=== PATIENT | male | born 1985 | race Caucasian/White ===

== ENCOUNTER 2018-11-02 14:21 | Inpatient (IN) | payer OTHER ==
--- NOTE | 2018-11-02 21:09 | HP ---
COWS - Scale Resting Pulse: 0= CA 80 or Below Sweatin=Flushed/Facial Moisture Restless Observation: 3= Extraneous Movement Pupil Size: 1= Pupils >than Normal Bone or Joint Aches: 4=Acute Joint/Muscle Pain Runny Nose/ Eye Tearin= Runny Nose/Eyes GI Upset > 30mins: 1= Stomach Cramp Tremor Observation: 4= Gross Tremor/Twitching Yawning Observation: 1= 1-2x During Session Anxiety or Irritability: 2=Irritable/Anxious Goose Flesh Skin: 0=Smooth Skin COWS Score: 20 CIWA Score - Admission Criteria [facility] Guidelines: Admission for Medically Managed Detox: Requires at least one of the followin. CIWA greater than 12 2. Seizures within the past 24 hours 3. Delirium tremens within the past 24 hours 4. Hallucinations within the past 24 hours 5. Acute intervention needed for co occurring medical disorder 6. Acute intervention needed for co occurring psychiatric disorder 7. Severe withdrawal that cannot be handled at a lower level of care (continued vomiting, continued diarrhea, abnormal vital signs) requiring intravenous medication and/or fluids 8. Admission ROS [facility] Chief Complaint: Heroin withdrawal symptoms Allergies/Adverse Reactions: Allergies Allergy/AdvReac Type Severity Reaction Status Date / Time bacitracin Allergy Rash Verified 11/02/18 19:25 History of Present Illness: 33 years old male with 5 years of heroin dependence is seeking admission to detox. Patient reports that his last detox was in November 2014 and reports insignificant period of sobriety. He reports medical history of psoriasis and denies suicide attempt/suicidal ideation at this time. Exam Limitations: No Limitations - Ebola screening Have you traveled outside of the country in the last 21 days: No (N) Have you had contact with anyone from an Ebola affected area: No Do you have a fever: No - Review of Systems Constitutional: Chills, Loss of Appetite, Malaise, Changes in sleep, Weakness EENT: reports: Sinus Pressure Respiratory: reports: No Symptoms reported Cardiac: reports: No Symptoms Reported GI: reports: Poor Appetite, Poor Fluid Intake, Abdominal cramping : reports: No Symptoms Reported Musculoskeletal: reports: Back Pain, Joint Pain, Neck Pain, Other (Generalized body aches) Integumentary: reports: Dryness, Flushing Neuro: reports: Tremors Endocrine: reports: No Symptoms Reported Hematology: reports: No Symptoms Reported Psychiatric: reports: Mood/Affect Appropiate, Orientated x3, Anxious Other Systems: Reviewed and Negative Patient History - Patient Medical History Hx Anemia: No Hx Asthma: No Hx Chronic Obstructive Pulmonary Disease (COPD): No Hx Cancer: No Hx Cardiac Disorders: No Hx Congestive Heart Failure: No Hx Hypertension: No Hx Hypercholesterolemia: No Hx Pacemaker: No HX Cerebrovascular Accident: No Hx Seizures: No Hx Dementia: No Hx Diabetes: No Hx Gastrointestinal Disorders: No Hx Liver Disease: No Hx Genitourinary Disorders: No Hx Sexually Transmitted Disorders: No Hx Renal Disease (ESRD): No Hx Thyroid Disease: No Hx Human Immunodeficiency Virus (HIV): No Hx Hepatitis C: No Hx Depression: No Hx Suicide Attempt: No Hx Bipolar Disorder: No Hx Schizophrenia: No Other Medical History: PSORIASIS - COSTENYS INJECTION - Patient Surgical History Past Surgical History: No - PPD History Previous Implant?: Yes Documented Results: Positive w/proof Implanted On Prior [facility] Admission?: Yes Date: 12/29/14 PPD to be Administered?: Yes - Reproductive History Patient is a Female of Child Bearing Age (11 -55 yrs old): No (MALE) - Smoking Cessation Smoking history: Current every day smoker Have you smoked in the past 12 months: Yes Aproximately how many cigarettes per day: 10 Cigars Per Day: 0 Hx Chewing Tobacco Use: No Initiated information on smoking cessation: Yes 'Breaking Loose' booklet given: 11/02/18 - Substance & Tx. History Hx Alcohol Use: No (OCASSIONALLY. LAST USE 3 DAYS AGO) Hx Substance Use: Yes Substance Use Type: Cocaine, Heroin, Opiates Hx [facility] - Substances abused Heroin Substance route: Injection Frequency: Daily Amount used: 2 to 3 bags Age of first use: 26 Date of last use: 11/01/18 Cocaine Substance route: Inhalation Frequency: 3-6 times per week Amount used: 20 dollars Age of first use: 24 Date of last use: 11/01/18 Crack Substance route: Injection Frequency: Daily Amount used: 10 dollars Age of first use: 32 Date of last use: 11/01/18 Alcohol Substance route: Oral Frequency: 1-2 times per week Amount used: 1 to 2 beers. Age of first use: 16 Date of last use: 10/28/18 Family Disease History - Family Disease History Family History: Denies Admission Physical Exam [facility] - Vital Signs Vital Signs: Vital Signs - 24 hr 11/02/18 19:24 Temperature 97.5 F L Pulse Rate 76 Respiratory 20 Rate Blood Pressure 136/83 Cleared for Admission [facility] - Detox or Rehab [facility] Level of Care: Medically Managed Detox Regimen/Protocol: Methadone Claeared for Rehab Admission: No Breathalyzer - Breathalyzer Breathalyzer: 0 Urine Drug Screen - Test Device Lot number: [id number] Expiration date: 07/27/20 - Control Is test valid?: Yes - Results Drug screen NEGATIVE: No Urine drug screen results: SYLVAIN-Cocaine, MOP-Opiates, OXY-Oxycodone Inpatient Rehab Admission - Rehab Decision to Admit Inpatient rehab admission?: No
[2018-11-02] MEDS ORDERED: MAGNESIUM HYDROX 2400MG/30ML ORAL SUSPENSION 30 ML CUP PO PRN (21:19)
[2018-11-02] MEDS ORDERED: MAG HYDROX/AL HYDROX/SIMETH 30 ML UNIT-DOSE CUP PO PRN (21:19)
[2018-11-02] MEDS ORDERED: METHADONE HCL 10 MG TABLET (FOR DETOX USE ONLY) PO ONE (21:19)
[2018-11-02] MEDS ORDERED: cloNIDine HCL 0.1 MG TABLET PO PRN (21:19)
[2018-11-02] MEDS ORDERED: METHOCARBAMOL 500 MG TABLET PO PRN (21:19)
[2018-11-02] MEDS ORDERED: MAGNESIUM CITRATE 300 ML BOTTLE PO PRN (21:19)
[2018-11-02] MEDS ORDERED: ACETAMINOPHEN 325 MG TABLET (FP) PO PRN ×2 (21:19)
[2018-11-02] MEDS ORDERED: BISMUTH SUBSALICYLATE 524 MG/30 ML UD PO PRN (21:19)
[2018-11-02] MEDS ORDERED: MELATONIN 5 MG TABLETS PO PRN (21:19)
[2018-11-02] MEDS ORDERED: MENTHOL/PHENOL 1 EACH UD MM PRN (21:19)
[2018-11-02] MEDS ORDERED: IBUPROFEN 400 MG TABLET (FP) PO PRN (21:19)
[2018-11-02] MEDS: THIAMINE HCL 100 MG TABLET (FP) PO SCH (22:20)
[2018-11-03] MEDS ORDERED: METHADONE HCL 10 MG TABLET (FOR DETOX USE ONLY) ONE (09:48)
[2018-11-03] MEDS ORDERED: METHADONE HCL 5 MG TABLET (FOR DETOX USE ONLY) ONE (09:48)
[2018-11-03] MEDS ORDERED: METHADONE (DETOX) 20 MG, METHADONE (DETOX) 5 MG PO ONE (10:00)
[2018-11-03] MEDS: NICOTINE 14 MG/24 HOURS TOPICAL PATCH TD SCH (10:12)
[2018-11-03] MEDS: NICOTINE POLACRILEX 2 MG GUM BUC PRN (10:12)
[2018-11-03] MEDS: PRENATAL VITAMINS W/ FOLIC ACID TABLET (FP) PO SCH (10:14)
[2018-11-03 10:18] LABS: HEMATOCRIT 39.5 % (35.4-49); HEMOGLOBIN 13.5 GM/dL (11.7-16.9); MCH 32.7 pg (25.7-33.7); PLATELET COUNT 267 K/MM3 (134-434); RBC 4.12 M/mm3 (4.00-5.60); RDW 13.2 % (11.9-15.9); WHITE BLOOD COUNT 6.3 K/mm3 (4.0-10.0)
[2018-11-03 10:37] LABS: ALBUMIN 3.5 g/dl (3.4-5.0); BILIRUBIN,TOTAL 0.3 mg/dL (0.2-1); BLOOD UREA NITROGEN 12.6 mg/dL (7-18); CALCIUM 9.4 mg/dL (8.5-10.1); CREATININE 0.9 mg/dL (0.55-1.3); POTASSIUM 3.8 mmol/L (3.5-5.1); TOT PROT 7.2 g/dl (6.4-8.2)
[2018-11-03] MEDS: hydrOXYzine PAMOATE 25 MG CAPSULE (FP) PO PRN (12:28)
--- NOTE | 2018-11-03 15:28 | PN ---
BHS COWS - Scale Resting Pulse: 0= [place] 80 or Below Sweatin= Chills/Flushing Restless Observation: 1= Difficult to Sit Still Pupil Size: 0= Normal to Room Light Bone or Joint Aches: 2= Severe Diffuse Aches Runny Nose/ Eye Tearin= Nasal Congestion GI Upset > 30mins: 1= Stomach Cramp Tremor Observation of Outstretched Hands: 2= Slight Tremor Visible Yawning Observation: 1= 1-2x During Session Anxiety or Irritability: 2=Irritable/Anxious Goose Flesh Skin: 3=Piloerection COWS Score: 14 S Progress Note (SOAP) Subjective: Tremors, Anxious, Body Aches, Nasal Congestion. Objective: PATIENT A & O X 3, OBSERVED AMBULATING ON DETOX UNIT UNASSISTED. IN NO ACUTE DISTRESS. 11/03/18 15:26 Vital Signs Temperature 96.9 F L 11/03/18 13:36 Pulse Rate 80 11/03/18 13:36 Respiratory Rate 16 11/03/18 13:36 Blood Pressure 121/71 11/03/18 13:36 O2 Sat by Pulse Oximetry (%) Laboratory Tests 11/03/18 11/03/18 11/03/18 08:00 08:00 08:00 WBC 6.3 RBC 4.12 Hgb 13.5 Hct 39.5 MCV 96.0 MCH 32.7 MCHC 34.0 RDW 13.2 Plt Count 267 MPV 7.0 L Sodium 147 H Potassium 3.8 Chloride 110 H Carbon Dioxide 31 Anion Gap 6 L BUN 12.6 Creatinine 0.9 Est GFR (CKD-EPI)AfAm 131.44 Est GFR (CKD-EPI)NonAf 113.41 Random Glucose 90 Calcium 9.4 Total Bilirubin 0.3 AST 12 L ALT 25 Alkaline Phosphatase 67 Total Protein 7.2 Albumin 3.5 RPR Titer Nonreactive LABS NOTED. RESULTS OF DETOX ADMISSION QFT /TB TEST PENDING. 11/03/18 15:27 Assessment: 11/03/18 15:27 WITHDRAWAL SYMPTOMS. Plan: CONTINUE DETOX.
[2018-11-03] MEDS: THIAMINE HCL 100 MG TABLET (FP) PO SCH (22:45)
[2018-11-04] MEDS ORDERED: METHADONE HCL 10 MG TABLET (FOR DETOX USE ONLY) PO ONE (10:00)
[2018-11-04] MEDS: PRENATAL VITAMINS W/ FOLIC ACID TABLET (FP) PO SCH (10:23)
[2018-11-04] MEDS: hydrOXYzine PAMOATE 25 MG CAPSULE (FP) PO PRN (10:25)
[2018-11-04] MEDS: NICOTINE POLACRILEX 2 MG GUM BUC PRN ×3 (10:26→19:12)
[2018-11-04] MEDS: NICOTINE 14 MG/24 HOURS TOPICAL PATCH TD SCH (12:11)
--- NOTE | 2018-11-04 15:02 | PN ---
BHS COWS - Scale Resting Pulse: 0= CA 80 or Below Sweatin= Chills/Flushing Restless Observation: 0= Sits Still Pupil Size: 0= Normal to Room Light Bone or Joint Aches: 1= Mild Discomfort Runny Nose/ Eye Tearin= Nasal Congestion GI Upset > 30mins: 2= Nausea/Diarrhea Tremor Observation of Outstretched Hands: 1= Tremor [place], Not Seen Yawning Observation: 0= None Anxiety or Irritability: 2=Irritable/Anxious Goose Flesh Skin: 3=Piloerection COWS Score: 11 S Progress Note (SOAP) Subjective: 33 years old male 1st patient [facility], [place], operated by [facility] admission since 2014 was admitted on 11/02/18 for opiate withdrawal sx management doing well with methadone detox regimen mild body ache sleep better at night Objective: 11/04/18 15:04 Vital Signs Temperature 97.2 F L 11/04/18 09:59 Pulse Rate 67 11/04/18 09:59 Respiratory Rate 18 11/04/18 09:59 Blood Pressure 105/54 L 11/04/18 09:59 O2 Sat by Pulse Oximetry (%) Laboratory Last Values WBC 6.3 K/mm3 (4.0-10.0) 11/03/18 08:00 RBC 4.12 M/mm3 (4.00-5.60) 11/03/18 08:00 Hgb 13.5 GM/dL (11.7-16.9) 11/03/18 08:00 Hct 39.5 % (35.4-49) 11/03/18 08:00 MCV 96.0 fl (80-96) 11/03/18 08:00 MCH 32.7 pg (25.7-33.7) 11/03/18 08:00 MCHC 34.0 g/dl (32.0-35.9) 11/03/18 08:00 RDW 13.2 % (11.9-15.9) 11/03/18 08:00 Plt Count 267 K/MM3 (134-434) 11/03/18 08:00 MPV 7.0 fl (7.5-11.1) L 11/03/18 08:00 Sodium 147 mmol/L (136-145) H 11/03/18 08:00 Potassium 3.8 mmol/L (3.5-5.1) 11/03/18 08:00 Chloride 110 mmol/L (98-107) H 11/03/18 08:00 Carbon Dioxide 31 mmol/L (21-32) 11/03/18 08:00 Anion Gap 6 MMOL/L (8-16) L 11/03/18 08:00 BUN 12.6 mg/dL (7-18) 11/03/18 08:00 Creatinine 0.9 mg/dL (0.55-1.3) 11/03/18 08:00 Est GFR (CKD-EPI)AfAm 131.44 11/03/18 08:00 Est GFR (CKD-EPI)NonAf 113.41 11/03/18 08:00 Random Glucose 90 mg/dL (74-106) 11/03/18 08:00 Calcium 9.4 mg/dL (8.5-10.1) 11/03/18 08:00 Total Bilirubin 0.3 mg/dL (0.2-1) 11/03/18 08:00 AST 12 U/L (15-37) L 11/03/18 08:00 ALT 25 U/L (13-61) 11/03/18 08:00 Alkaline Phosphatase 67 U/L (45-117) 11/03/18 08:00 Total Protein 7.2 g/dl (6.4-8.2) 11/03/18 08:00 Albumin 3.5 g/dl (3.4-5.0) 11/03/18 08:00 RPR Titer Nonreactive (NONREACTIVE) 11/03/18 08:00 lab noted Assessment: 11/04/18 15:04 opiate withdrawal sx Plan: continue methadone detox
[2018-11-04] MEDS: THIAMINE HCL 100 MG TABLET (FP) PO SCH (23:35)
[2018-11-05] MEDS ORDERED: METHADONE (DETOX) 10 MG, METHADONE (DETOX) 5 MG PO ONE (10:00)
[2018-11-05] MEDS: PRENATAL VITAMINS W/ FOLIC ACID TABLET (FP) PO SCH (10:20)
[2018-11-05] MEDS: NICOTINE 14 MG/24 HOURS TOPICAL PATCH TD SCH (10:20)
[2018-11-05] MEDS ORDERED: METHADONE HCL 5 MG TABLET (FOR DETOX USE ONLY) ONE (10:20)
[2018-11-05] MEDS ORDERED: METHADONE HCL 10 MG TABLET (FOR DETOX USE ONLY) ONE (10:20)
[2018-11-05] MEDS: NICOTINE POLACRILEX 2 MG GUM BUC PRN ×4 (10:20→20:24)
[2018-11-05] MEDS: hydrOXYzine PAMOATE 25 MG CAPSULE (FP) PO PRN ×2 (10:39→18:01)
--- NOTE | 2018-11-05 11:07 | PN ---
BHS COWS - Scale Resting Pulse: 0= [place] 80 or Below Sweatin= Chills/Flushing Restless Observation: 0= Sits Still Pupil Size: 0= Normal to Room Light Bone or Joint Aches: 1= Mild Discomfort Runny Nose/ Eye Tearin= Nasal Congestion GI Upset > 30mins: 1= Stomach Cramp Tremor Observation of Outstretched Hands: 1= Tremor [place], Not Seen Yawning Observation: 1= 1-2x During Session Anxiety or Irritability: 2=Irritable/Anxious Goose Flesh Skin: 0=Smooth Skin COWS Score: 8 BHS Progress Note (SOAP) Subjective: doing well with methadone detox regimen sleep better at night mild body ache tolerate food and fluid well discuss medication assisted treatment program as aftercare in the community Objective: 11/05/18 11:15 Vital Signs Temperature 98.1 F 11/05/18 09:36 Pulse Rate 75 11/05/18 09:36 Respiratory Rate 18 11/05/18 09:36 Blood Pressure 122/73 11/05/18 09:36 O2 Sat by Pulse Oximetry (%) Laboratory Last Values WBC 6.3 K/mm3 (4.0-10.0) 11/03/18 08:00 RBC 4.12 M/mm3 (4.00-5.60) 11/03/18 08:00 Hgb 13.5 GM/dL (11.7-16.9) 11/03/18 08:00 Hct 39.5 % (35.4-49) 11/03/18 08:00 MCV 96.0 fl (80-96) 11/03/18 08:00 MCH 32.7 pg (25.7-33.7) 11/03/18 08:00 MCHC 34.0 g/dl (32.0-35.9) 11/03/18 08:00 RDW 13.2 % (11.9-15.9) 11/03/18 08:00 Plt Count 267 K/MM3 (134-434) 11/03/18 08:00 MPV 7.0 fl (7.5-11.1) L 11/03/18 08:00 Sodium 147 mmol/L (136-145) H 11/03/18 08:00 Potassium 3.8 mmol/L (3.5-5.1) 11/03/18 08:00 Chloride 110 mmol/L (98-107) H 11/03/18 08:00 Carbon Dioxide 31 mmol/L (21-32) 11/03/18 08:00 Anion Gap 6 MMOL/L (8-16) L 11/03/18 08:00 BUN 12.6 mg/dL (7-18) 11/03/18 08:00 Creatinine 0.9 mg/dL (0.55-1.3) 11/03/18 08:00 Est GFR (CKD-EPI)AfAm 131.44 11/03/18 08:00 Est GFR (CKD-EPI)NonAf 113.41 11/03/18 08:00 Random Glucose 90 mg/dL (74-106) 11/03/18 08:00 Calcium 9.4 mg/dL (8.5-10.1) 11/03/18 08:00 Total Bilirubin 0.3 mg/dL (0.2-1) 11/03/18 08:00 AST 12 U/L (15-37) L 11/03/18 08:00 ALT 25 U/L (13-61) 11/03/18 08:00 Alkaline Phosphatase 67 U/L (45-117) 11/03/18 08:00 Total Protein 7.2 g/dl (6.4-8.2) 11/03/18 08:00 Albumin 3.5 g/dl (3.4-5.0) 11/03/18 08:00 RPR Titer Nonreactive (NONREACTIVE) 11/03/18 08:00 lab noted Assessment: 11/05/18 11:15 opiate withdrawal sx Plan: continue methadone detox regimen
[2018-11-05] MEDS: THIAMINE HCL 100 MG TABLET (FP) PO SCH (22:29)
[2018-11-06] MEDS: PRENATAL VITAMINS W/ FOLIC ACID TABLET (FP) PO SCH (09:32)
[2018-11-06] MEDS: hydrOXYzine PAMOATE 25 MG CAPSULE (FP) PO PRN ×3 (09:32→21:07)
[2018-11-06] MEDS: NICOTINE POLACRILEX 2 MG GUM BUC PRN ×4 (09:32→21:07)
[2018-11-06] MEDS: NICOTINE 14 MG/24 HOURS TOPICAL PATCH TD SCH (09:55)
[2018-11-06] MEDS ORDERED: METHADONE HCL 10 MG TABLET (FOR DETOX USE ONLY) PO ONE (10:00)
--- NOTE | 2018-11-06 11:06 | PN ---
BHS COWS - Scale Resting Pulse: 0= [place] 80 or Below Sweatin= Chills/Flushing Restless Observation: 0= Sits Still Pupil Size: 0= Normal to Room Light Bone or Joint Aches: 1= Mild Discomfort Runny Nose/ Eye Tearin= None GI Upset > 30mins: 0= None Tremor Observation of Outstretched Hands: 1= Tremor [place], Not Seen Yawning Observation: 0= None Anxiety or Irritability: 1=Feels Anxious/Irritable Goose Flesh Skin: 0=Smooth Skin COWS Score: 4 BHS Progress Note (SOAP) Subjective: doing well with methadone detox regimen no joint swelling ADL's independent no trouble chewing swallowing ambulating from bed to bathroom steady gait Objective: 11/06/18 11:08 Vital Signs Temperature 97.9 F 11/06/18 09:58 Pulse Rate 68 11/06/18 09:58 Respiratory Rate 18 11/06/18 09:58 Blood Pressure 101/58 L 11/06/18 09:58 O2 Sat by Pulse Oximetry (%) Laboratory Last Values WBC 6.3 K/mm3 (4.0-10.0) 11/03/18 08:00 RBC 4.12 M/mm3 (4.00-5.60) 11/03/18 08:00 Hgb 13.5 GM/dL (11.7-16.9) 11/03/18 08:00 Hct 39.5 % (35.4-49) 11/03/18 08:00 MCV 96.0 fl (80-96) 11/03/18 08:00 MCH 32.7 pg (25.7-33.7) 11/03/18 08:00 MCHC 34.0 g/dl (32.0-35.9) 11/03/18 08:00 RDW 13.2 % (11.9-15.9) 11/03/18 08:00 Plt Count 267 K/MM3 (134-434) 11/03/18 08:00 MPV 7.0 fl (7.5-11.1) L 11/03/18 08:00 Sodium 147 mmol/L (136-145) H 11/03/18 08:00 Potassium 3.8 mmol/L (3.5-5.1) 11/03/18 08:00 Chloride 110 mmol/L (98-107) H 11/03/18 08:00 Carbon Dioxide 31 mmol/L (21-32) 11/03/18 08:00 Anion Gap 6 MMOL/L (8-16) L 11/03/18 08:00 BUN 12.6 mg/dL (7-18) 11/03/18 08:00 Creatinine 0.9 mg/dL (0.55-1.3) 11/03/18 08:00 Est GFR (CKD-EPI)AfAm 131.44 11/03/18 08:00 Est GFR (CKD-EPI)NonAf 113.41 11/03/18 08:00 Random Glucose 90 mg/dL (74-106) 11/03/18 08:00 Calcium 9.4 mg/dL (8.5-10.1) 11/03/18 08:00 Total Bilirubin 0.3 mg/dL (0.2-1) 11/03/18 08:00 AST 12 U/L (15-37) L 11/03/18 08:00 ALT 25 U/L (13-61) 11/03/18 08:00 Alkaline Phosphatase 67 U/L (45-117) 11/03/18 08:00 Total Protein 7.2 g/dl (6.4-8.2) 11/03/18 08:00 Albumin 3.5 g/dl (3.4-5.0) 11/03/18 08:00 RPR Titer Nonreactive (NONREACTIVE) 11/03/18 08:00 lab noted Assessment: 11/06/18 11:08 opiate withdrawal sx Plan: continue methadone detox regimen discuss medication assisted treatment program
[2018-11-06] MEDS: THIAMINE HCL 100 MG TABLET (FP) PO SCH (21:07)
[2018-11-07] MEDS ORDERED: METHADONE HCL 5 MG TABLET (FOR DETOX USE ONLY) PO ONE (06:00)
[2018-11-07] MEDS: hydrOXYzine PAMOATE 25 MG CAPSULE (FP) PO PRN (09:03)
[2018-11-07] MEDS: PRENATAL VITAMINS W/ FOLIC ACID TABLET (FP) PO SCH (09:03)
[2018-11-07] MEDS: NICOTINE POLACRILEX 2 MG GUM BUC PRN ×2 (09:04→11:11)
[2018-11-07] MEDS: NICOTINE 14 MG/24 HOURS TOPICAL PATCH TD SCH (09:04)
[2018-11-07 09:23] VITALS: BP 117/65; PULSE 85; TEMP 98.7
--- NOTE | 2018-11-07 11:05 | DS ---
[facility] Detox Discharge Summary Admission Date: 11/02/18 Discharge Date: 11/07/18 - History Present History: Opioid Dependence Additional Comments: 33 years old admitted on 11/02/18 for opiate withdrawal sx management did well with methadone detox regimen no complication through out the detox stay - Physical Exam Results Vital Signs: Vital Signs Temperature 98.7 F 11/07/18 09:22 Pulse Rate 85 11/07/18 09:22 Respiratory Rate 20 11/07/18 09:22 Blood Pressure 117/65 11/07/18 09:22 O2 Sat by Pulse Oximetry (%) Pertinent Admission Physical Exam Findings: opiate withdrawal sx Laboratory Last Values WBC 6.3 K/mm3 (4.0-10.0) 11/03/18 08:00 RBC 4.12 M/mm3 (4.00-5.60) 11/03/18 08:00 Hgb 13.5 GM/dL (11.7-16.9) 11/03/18 08:00 Hct 39.5 % (35.4-49) 11/03/18 08:00 MCV 96.0 fl (80-96) 11/03/18 08:00 MCH 32.7 pg (25.7-33.7) 11/03/18 08:00 MCHC 34.0 g/dl (32.0-35.9) 11/03/18 08:00 RDW 13.2 % (11.9-15.9) 11/03/18 08:00 Plt Count 267 K/MM3 (134-434) 11/03/18 08:00 MPV 7.0 fl (7.5-11.1) L 11/03/18 08:00 Sodium 147 mmol/L (136-145) H 11/03/18 08:00 Potassium 3.8 mmol/L (3.5-5.1) 11/03/18 08:00 Chloride 110 mmol/L (98-107) H 11/03/18 08:00 Carbon Dioxide 31 mmol/L (21-32) 11/03/18 08:00 Anion Gap 6 MMOL/L (8-16) L 11/03/18 08:00 BUN 12.6 mg/dL (7-18) 11/03/18 08:00 Creatinine 0.9 mg/dL (0.55-1.3) 11/03/18 08:00 Est GFR (CKD-EPI)AfAm 131.44 11/03/18 08:00 Est GFR (CKD-EPI)NonAf 113.41 11/03/18 08:00 Random Glucose 90 mg/dL (74-106) 11/03/18 08:00 Calcium 9.4 mg/dL (8.5-10.1) 11/03/18 08:00 Total Bilirubin 0.3 mg/dL (0.2-1) 11/03/18 08:00 AST 12 U/L (15-37) L 11/03/18 08:00 ALT 25 U/L (13-61) 11/03/18 08:00 Alkaline Phosphatase 67 U/L (45-117) 11/03/18 08:00 Total Protein 7.2 g/dl (6.4-8.2) 11/03/18 08:00 Albumin 3.5 g/dl (3.4-5.0) 11/03/18 08:00 RPR Titer Nonreactive (NONREACTIVE) 11/03/18 08:00 TB (QFT) Incubation (.) 11/03/18 08:00 TB Test (QFT) Nil 0.11 IU/mL (.) 11/03/18 08:00 TB Test (QFT) Mitogen 7.65 IU/mL (.) 11/03/18 08:00 TB Test (QFT) Antigen 0.10 IU/mL (.) 11/03/18 08:00 TB Test (QFT) Negative (Negative) 11/03/18 08:00 TB Positive Criteria (.) 11/03/18 08:00 lab noted - Treatment Hospital Course: Detox Protocol Followed, Detoxed Safely, Responded well, Discharged Condition Good, Rehab Referral Accepted Patient has Accepted a Rehab Referral to: [facility] - Medication Discharge Medications: Ambulatory Orders Secukinumab [Cosentyx Syringe] 1 dose IM MONTHLY 11/02/18 - Diagnosis (1) Alcohol dependence with uncomplicated withdrawal Current Visit: Yes Status: Acute (2) Nicotine dependence Current Visit: Yes Status: Acute Qualifiers: Nicotine product type: cigarettes Substance use status: in withdrawal Qualified Code(s): F17.213 - Nicotine dependence, cigarettes, with withdrawal (3) Arthritis Current Visit: Yes Status: Chronic - AMA Did Patient Leave Against Medical Advice: No COWS (PN) - Opiate Withdrawal Resting Pulse: 1= CT 81-100 Sweatin= No chills or Flushing Restless Observation: 0= Sits Still Pupil Size: 0= Normal to Room Light Bone or Joint Aches: 1= Mild Discomfort Runny Nose/ Eye Tearin= None GI Upset > 30mins: 0= None Tremor Observation of Outstretched Hands: 0= None Yawning Observation: 0= None Anxiety or Irritability: 0= None Goose Flesh Skin: 0=Smooth Skin COWS Score: 2
== END 2018-11-07 11:14 | disposition home or self-care (01) | DRG 773 ==
LOC: YASAS 14:21 → Y3N 21:43
PROVIDERS: ADMIT Surgery; ATTEND Surgery
PROC: HZ2ZZZZ Detoxification Services for Substance Abuse Treatment (ICD-10-PCS; principal; 2018-11-02)
DX: F11.23 Opioid dependence with withdrawal (principal); F10.20 Alcohol dependence, uncomplicated; F14.20 Cocaine dependence, uncomplicated; F17.210 Nicotine dependence, cigarettes, uncomplicated; M19.90 Unspecified osteoarthritis, unspecified site
CPT/HCPCS: 36415; 80053; 85027; 86480; 86593